=== PATIENT | female | born 1990 | race Caucasian/White ===

== ENCOUNTER 2021-11-05 06:16 | Day surgery (SDC) | payer OTHER ==
[2021-11-05] MEDS ORDERED: LACTATED RINGERS 1,000 ML IV ONE ×2 (06:20→08:25)
[2021-11-05 06:44] LABS: HCG UR QUAL NEGATIVE
[2021-11-05] MEDS ORDERED: fentaNYL 100 MCG/2 ML VIAL ONE (07:05)
[2021-11-05] MEDS ORDERED: MIDAZOLAM 2 MG/2 ML VIAL ONE (07:05)
[2021-11-05] MEDS ORDERED: PROPOFOL 200 MG/20 ML VIAL IVP ONE (07:06)
[2021-11-05] MEDS ORDERED: ROCURONIUM 50 MG/5 ML VIAL ONE (07:06)
[2021-11-05] MEDS ORDERED: LIDOCAINE-MPF 2% 5 ML VIAL ONE (07:06)
--- NOTE | 2021-11-05 07:15 | ANESTHESIA ---
Pre-Anesthesia VS, & Labs - Diagnosis back lipoma - Procedure excision back lipoma Vital Signs: Temp Pulse Resp BP Pulse Ox 37.1 C 90 16 133/98 H 97 11/05/21 06:36 11/05/21 06:36 11/05/21 06:36 11/05/21 06:36 11/05/21 06:36 Height: 5 ft 6 in Weight (kg): 96 kg Body Mass Index: 34.1 BMI Classification: Obese - NPO >8 hours - Is Patient ?: No - Lab Results Lab results reviewed: Yes Home Medications and Allergies Allergies/Adverse Reactions: Allergies Allergy/AdvReac Type Severity Reaction Status Date / Time amoxicillin Allergy Rash Verified 11/04/21 11:17 Anes History & Medical History - Anesthetic History Anesthesia Complications: reports: No previous complications Family history of Anesthesia Complications: Denies Family history of Malignant Hyperthermia: Denies - Medical History Cardiovascular: reports: None Pulmonary: reports: Asthma Gastrointestinal: reports: None Urinary: reports: None Musculoskeletal: reports: None Endocrine/Autoimmune: reports: None Skin: reports: None - Surgical History Eyes Ears Nose Throat (EENT): reports: Myringotomy (tubes), Tonsil/Adenoidectomy Orthopedic: reports: Other Exam General: Alert, Oriented x3, Cooperative Dental: WNL Mouth Openin Fingerbreadth Neck Mobility: Normal Mallampati classification: II Respiratory: Lungs clear, Normal breath sounds, No respiratory distress Cardiovascular: Regular rate Neurological: Normal speech Mental/Cognitive Status: Alert/Oriented X3, Normal for patient Cognitive Status: Within normal limits Plan Anesthesia Type: General Consent for Procedure(s) Verified and Reviewed: Yes Code Status: Attempt Resuscitation ASA classification: 2-Mild systemic disease Is this case an emergency?: No
[2021-11-05] MEDS ORDERED: ATROPINE ABBOJECT 1 MG/10 ML SYRINGE IVP PRN (07:16)
[2021-11-05] MEDS ORDERED: MORPHINE 2 MG/ML CARPUJECT IVP PRN (07:16)
[2021-11-05] MEDS ORDERED: HYDROmorphone 0.5 MG/0.5 ML SYRINGE IVP PRN (07:16)
[2021-11-05] MEDS ORDERED: ePHEDrine 50 MG/ML VIAL IVP PRN (07:16)
[2021-11-05] MEDS ORDERED: fentaNYL 100 MCG/2 ML VIAL IVP PRN (07:16)
[2021-11-05] MEDS ORDERED: METOCLOPRAMIDE 10 MG/2 ML VIAL IVP PRN (07:16)
[2021-11-05] MEDS ORDERED: ONDANSETRON 4 MG/2 ML VIAL IVP PRN ×2 (07:16→08:19)
[2021-11-05] MEDS ORDERED: NALOXONE 0.4 MG/ML VIAL IVP PRN (07:16)
[2021-11-05] MEDS ORDERED: ONDANSETRON 4 MG/2 ML VIAL ONE ×2 (07:18)
[2021-11-05] MEDS ORDERED: BUPIVACAINE 0.5% PF 10 ML VIAL ONE (07:19)
--- NOTE | 2021-11-05 07:27 | HISTORY & PHYSICAL EXAMINATION ---
Chief Complaint - Chief Complaint Chief Complaint: large painful back mass History of Present Illness - History Obtained From Records Reviewed: yes History obtained from: pt Exam Limitations: none - History of Present Illness HPI Comment/Other: growing and now large and painful left lower to mid back lipoma History - Past Medical History Cardiovascular: reports: None Respiratory: reports: Asthma Endocrine/Autoimmune: reports: None GI: reports: None : reports: None Psych: reports: None, Anxiety, Panic attacks, Claustrophobia Musculoskeletal: reports: None Derm: reports: None MRSA Hx?: No - Past Surgical History Ortho: reports: Other HEENT: reports: Myringotomy (tubes), Tonsil/Adenoidectomy Meds/Allgy - Allergies Allergies/Adverse Reactions: Allergies Allergy/AdvReac Type Severity Reaction Status Date / Time amoxicillin Allergy Rash Verified 11/04/21 11:17 Review of Systems - Other Findings Other Findings: 10 pt ros as above otherwise unremarkable Exam - Vital Signs Reviewed Vital Signs: Yes Vital Signs: Vital Signs x48h Temp Pulse Resp BP Pulse Ox 11/05/21 06:36 37.1 C 90 16 133/98 H 97 - Physical Exam General Appearance: positive: Alert Eyes Bilateral: positive: PERRL, EOMI ENT: positive: No signs of dehydration Neck: positive: No JVD Respiratory: positive: No respiratory distress, Breath sounds nml Cardiovascular: positive: Regular rate & rhythm Abdomen: positive: Non-tender, No distention Back: positive: Other (6 x 8 cm left lower to mid back lipoma) Neurologic/Psychiatric: positive: Oriented x3 Conclusion/Plan - Problem List (1) Lipoma of back Conclusion/Plan: plan excision. parq held and consent obtained - Lab Results Lab results reviewed: Yes
[2021-11-05] MEDS ORDERED: BUPIVACAINE 0.5% PF 10 ML VIAL IM ONE (07:51)
[2021-11-05] MEDS ORDERED: LACTATED RINGERS 1,000 ML IV SCH (08:00)
[2021-11-05] MEDS ORDERED: NEOSTIGMINE 1 MG/1 ML 10 ML MDV ONE (08:04)
[2021-11-05] MEDS ORDERED: GLYCOPYRROLATE 1 MG/5 ML VIAL ONE (08:04)
[2021-11-05] MEDS ORDERED: HYDROcod/ACETAM 5/325 MG TABLET PO PRN (08:19)
[2021-11-05 09:53] VITALS: BP 120/84
[2021-11-05] MEDS ORDERED: ONDANSETRON ODT 4 MG TABLET TL PRN (10:16)
--- NOTE | 2021-11-05 10:20 | OPERATIVE REPORT ---
Operative Report - General Procedure Date: 11/05/21 Planned Procedure: excision 6 x 8 cm back lipoma Pre-Op Diagnosis: back lipoma Procedure Performed: excision 6 x 8 cm back lipoma Post Op Diagnosis: back lipoma - Procedure Note Primary Surgeon: mitesh carrero Anesthesia Technique: General ET tube, Local Pathology: benign/ not sent Estimated Blood Loss (mL): 0 Drain/Tube Type: Other (none) Indications: large painful back lipoma Findings: as above Complications: none - Other Other Information/Narrative: The patient was properly identified brought to the operating room and placed in supine position. General endotracheal anesthesia was induced. Sequential compression devices were placed. She was carefully repositioned right lateral decubitus. She was prepped and draped in a sterile fashion. Antibiotics were not given. A vertical 6 cm incision was made directly over the mid to lower left back lipoma. Dissection proceeded with cutting current. The lipoma had a pseudocapsule. It was gently mobilized using blunt retraction and cutting current cautery. It was removed in its entirety. Hemostasis was assured. Deep subcutaneous tissue was closed with interrupted 2-0 Vicryl suture. An additional row of interrupted 2-0 Vicryl suture was then placed. Buried interrupted subdermal 3-0 Vicryl sutures were placed. Skin was closed with a running 4-0 Monocryl subcuticular suture. Steri-Strips and dressing were applied. She tolerated the procedure well was repositioned awakened and brought to recovery in good condition.
--- NOTE | 2021-11-05 11:00 | ANESTHESIA POST OP EVALUATION ---
Anesthesia Post Eval - Post Anesthesia Eval Vitals: Last Vital Signs Temp 36.9 C 11/05/21 09:50 Pulse 78 11/05/21 09:50 Resp 16 11/05/21 09:50 BP 120/84 H 11/05/21 09:50 Pulse Ox 95 11/05/21 09:50 CV Function Including HR & BP: Stable Pain Control: Satisfactory Nausea & Vomiting: Negative Mental Status: Baseline Respiratory Status: Airway Patent Hydration Status: Satisfactory Anesthesia Complications: None
== END 2021-11-05 06:17 | disposition home or self-care (01) ==
LOC: SDS 06:16
PROVIDERS: ATTEND Surgery
DX: D17.1 Benign lipomatous neoplasm of skin and subcutaneous tissue of trunk (principal); E66.9 Obesity, unspecified; Z68.34 Body mass index [BMI] 34.0-34.9, adult
CPT/HCPCS: 11406; 12032; 81025; J7120; Q0162

== ENCOUNTER 2022-11-16 08:00 | Outpatient (CLI) | payer OTHER | END 2022-11-16 23:59 | disposition home or self-care (01) | LOC: LAB.N 08:00 | PROVIDERS: ATTEND Nurse Practitioner | DX: R30.0 Dysuria (principal) | CPT/HCPCS: 87077; 87086 ==